=== PATIENT | male | born 2000 | race African-American/Black ===

== ENCOUNTER 2025-03-20 09:43 | Emergency (ER) | payer OTHER, SELFPAY ==
--- NOTE | ~2025-03-20 | XR_ITS ---
XR finger 5th RT min 2V 03/20/2025 10:08 Indication: Right fifth finger pain Procedure: 4 views right fifth finger Comparison: No prior studies for comparison. Findings: No acute fracture or traumatic malalignment. There is flexion at the distal interphalangeal joint, suspicious for ligamentous injury. Mild soft tissue swelling. No foreign bodies. Impression: 1: No acute fracture. Reviewed, dictated and finalized at location O. Impression: 1: No acute fracture.
[2025-03-20 09:48] VITALS: BP 116/72; PULSE 73; RESP 18; TEMP 36.7; O2SAT 100
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
== END 2025-03-20 11:21 | disposition home or self-care (01) ==
PROVIDERS: Emergency Provider Physician Assistant
DX: M20.011 Mallet finger of right finger(s) (principal)
CPT/HCPCS: 29130; 73140; 99283